=== PATIENT | male | born 1990 | race African-American/Black ===

== ENCOUNTER 2017-02-05 13:07 | Emergency (ER) | payer OTHER ==
[~2017-02-05] VITALS: Ht 180.3 cm; Wt 68.0 kg
--- NOTE | 2017-02-05 13:14 | ERA ---
ER Documentation Chief Complaint Date/Time DATE: 02/05/17 TIME: 13:14 Chief Complaint Suicidal ideation HPI The patient is a 27-year-old male, presenting to the ER because of acute suicidal ideation, acute auditory hallucination. He has not been taking his medication. He denies homicidal ideation, headache, neck pain, chest pain, abdominal pain, vomiting, dysuria, diarrhea. He has been using amphetamine. He does not smoke nor drink Past medical history: Schizoaffective disorder Past surgical history: None ROS All systems reviewed and are negative except as per history of present illness. Medications Home Meds Reported Medications Risperidone* (Risperdal*) 2 Mg Tablet, PO BID, TAB 02/05/17 Divalproex Sodium* (Depakote*) 500 Mg Tablet.dr, 500 MG PO BID, #120 TAB 02/05/17 Allergies Allergies: Coded Allergies: No Known Allergy (Unverified , 02/05/17) Physical Exam Vitals Vital Signs Date Time Temp Pulse Resp B/P Pulse Ox O2 Delivery O2 Flow Rate FiO2 02/05/17 19:11 98 20 169/113 98 Room Air 02/05/17 13:15 98.8 101 20 166/103 100 Physical Exam Const: No acute distress. Head: Atraumatic. Eyes: Normal Conjunctiva. ENT: Normal External Ears, Nose and Mouth. Neck: Full range of motion. No meningismus. Resp: Clear to auscultation bilaterally. Cardio: Regular rate and rhythm, no murmurs. Abd: Soft, non distended, normal bowel sounds, non tender. Skin: No petechiae or rashes. Back: No midline or flank tenderness. Ext: No cyanosis, or edema. Neur: Awake and alert. No focal deficit Psych: Psychotic and suicidal. Result Diagram: 02/05/17 1410 02/05/17 1410 Results 24 hrs Laboratory Tests Test 02/05/17 14:10 White Blood Count 6.810^3/ul Red Blood Count 4.8410^6/ul Hemoglobin 14.5g/dl Hematocrit 42.8% Mean Corpuscular Volume 88.4fl Mean Corpuscular Hemoglobin 30.0pg Mean Corpuscular Hemoglobin Concent 33.9g/dl Red Cell Distribution Width 12.4% Platelet Count 13187^3/UL Mean Platelet Volume 11.3fl Neutrophils % 70.5% Lymphocytes % 17.2% Monocytes % 11.0% Eosinophils % 0.4% Basophils % 0.6% Nucleated Red Blood Cells % 0.0/100WBC Neutrophils # 4.810^3/ul Lymphocytes # 1.210^3/ul Monocytes # 0.810^3/ul Eosinophils # 0.010^3/ul Basophils # 0.010^3/ul Nucleated Red Blood Cells # 0.010^3/ul Urine Color LT. YELLOW Urine Clarity CLEAR Urine pH 7.0 Urine Specific [place] 1.020 Urine Ketones TRACE Urine Nitrite NEGATIVE Urine Bilirubin NEGATIVE Urine Urobilinogen 1.0 E.U./dL Urine Leukocyte Esterase NEGATIVE Urine Microscopic RBC 0-2/HPF Urine Microscopic WBC 5-10/HPF Urine Squamous Epithelial Cells RARE Urine Hemoglobin NEGATIVE Urine Glucose NEGATIVE% Urine Total Protein 1+ Sodium Level 141mmol/L Potassium Level 4.0mmol/L Chloride Level 101mmol/L Carbon Dioxide Level 25mmol/L Anion Gap 19 Blood Urea Nitrogen 17mg/dl Creatinine 1.00mg/dl Glucose Level 97mg/dl Calcium Level 9.5mg/dl Total Bilirubin 0.5mg/dl Direct Bilirubin 0.00mg/dl Indirect Bilirubin 0.5mg/dl Aspartate Amino Transf (AST/SGOT) 28IU/L Alanine Aminotransferase (ALT/SGPT) 30IU/L Alkaline Phosphatase 74IU/L Total Protein 8.4g/dl Albumin 4.8g/dl Globulin 3.60g/dl Albumin/Globulin Ratio 1.33 Lipase 24U/L Salicylates Level < 1.0mg/dl Urine Opiates Screen NEGATIVE Acetaminophen Level < 10.0ug/ml Urine Barbiturates NEGATIVE Urine Amphetamines Screen POSITIVE Urine Benzodiazepines Screen NEGATIVE Urine Cocaine Screen NEGATIVE Urine Cannabinoids NEGATIVE Ethyl Alcohol Level < 10.0mg/dl Current Medications Medications (Trade) Dose Ordered Sig/Amy Route PRN Reason Start Time Stop Time Status Last Admin Dose Admin Divalproex Sodium (Depakote) 500 mg ONCE ONCE PO 02/05/17 20:00 02/05/17 20:01 DC 02/05/17 20:05 Risperidone (Risperdal) 2 mg ONCE ONCE PO 02/05/17 20:00 02/05/17 20:01 DC 02/05/17 20:05 Procedures/MDM MEDICAL MAKING DECISION: The patient is a 27-year-old male, presenting with acute suicidal ideation, acute substance abuse. The differential diagnoses considered include but are not limited to drug- induced psychosis, psychosis, substance abuse Departure Diagnosis: Primary Impression: Suicidal ideation Condition: Stable Comments Consultation: She was evaluated by telepsychiatrist who recommended voluntary admission SARAH GOLDSMITH MD February 05, 2017 13:14
[2017-02-05 13:15] VITALS: Ht 180.3 cm; Wt 68.0 kg
[2017-02-05] MEDS ORDERED: DIVA500T7 PO (13:43)
[2017-02-05] MEDS ORDERED: RISP2TAB93 PO (13:43)
[2017-02-05 14:26] LABS: ADD SCAN DIFF NO
[2017-02-05 14:27] LABS: BASOPHILS % 0.6 % (0.0-2.0); EOSINOPHILS % 0.4 % (0.0-7.0); HEMATOCRIT 42.8 % (42.0-52.0); HEMOGLOBIN 14.5 g/dl (14.0-18.0); LYMPHOCYTES # 1.2 10^3/ul (0.8-2.9); LYMPHOCYTES % 17.2 % (15.0-51.0); MEAN CORPUSCULAR HGB CONC 33.9 g/dl (32.0-37.0); MEAN CORPUSCULAR VOLUME 88.4 fl (82.0-101.0); MEAN PLATELET VOLUME 11.3 fl (7.4-10.4); MONOCYTE # 0.8 10^3/ul (0.3-0.9); NEUTROPHIL # 4.8 10^3/ul (1.6-7.5); NEUTROPHILS % 70.5 % (39.0-77.0); PLATELET COUNT 206 10^3/UL (140-415); RED BLOOD COUNT 4.84 10^6/ul (4.70-6.10); RED CELL DISTRIBUTION WIDTH 12.4 % (11.5-14.5); WHITE BLOOD COUNT 6.8 10^3/ul (4.8-10.8)
[2017-02-05 14:48] LABS: ALBUMIN 4.8 g/dl (3.3-4.9)
[2017-02-05 14:49] LABS: CHLORIDE 101 mmol/L (97-110); SODIUM 141 mmol/L (135-144)
[2017-02-05 14:51] LABS: ALBUMIN/GLOBULIN RATIO 1.33; ALKALINE PHOSPHATASE 74 IU/L (42-121); ANION GAP 19 (8-16); ASPARTATE AMINO TRANSFERASE 28 IU/L (15-46); BILIRUBIN,INDIRECT 0.5 mg/dl (0-1.1); BILIRUBIN,TOTAL 0.5 mg/dl (0.2-1.3); CARBON DIOXIDE 25 mmol/L (21-31); TOTAL PROTEIN 8.4 g/dl (6.1-8.1)
[2017-02-05 14:52] LABS: ALANINE AMINOTRANSFERASE 30 IU/L (13-69); BLOOD UREA NITROGEN 17 mg/dl (7-20); CALCIUM 9.5 mg/dl (8.4-10.2); GLUCOSE 97 mg/dl (70-220)
[2017-02-05 14:53] LABS: ACETAMINOPHEN < 10.0 ug/ml (10.0-30.0); ETHANOL < 10.0 mg/dl; SALICYLATE < 1.0 mg/dl (5.0-30.0)
[2017-02-05 15:36] LABS: ADD UMIC YES; URINE BILIRUBIN (Dip) NEGATIVE (NEGATIVE); URINE BLOOD (Dip) NEGATIVE (NEGATIVE); URINE COLOR LT. YELLOW (YELLOW); URINE GLUCOSE (Dip) NEGATIVE (NEGATIVE); URINE KETONES (Dip) TRACE (NEGATIVE); URINE LEUKOCYTE ESTERASE (Dip) NEGATIVE (NEGATIVE); URINE NITRITE (Dip) NEGATIVE (NEGATIVE); URINE TOTAL PROTEIN (Dip) 1+ (NEGATIVE); URINE UROBILINOGEN (Dip) 1.0 E.U./dL (0.1-1.0)
[2017-02-05 15:48] LABS: SQUAMOUS EPITHELIAL CELL,UR RARE; URINE RBCS 0-2 /HPF (0)
[2017-02-05 16:17] LABS: BARBITURATES NEGATIVE (NEGATIVE); BENZODIAZEPINES NEGATIVE (NEGATIVE); CANNABINOIDS NEGATIVE (NEGATIVE); COCAINE NEGATIVE (NEGATIVE); OPIATES NEGATIVE (NEGATIVE)
--- NOTE | 2017-02-05 17:14 | PSY ---
Date/Time of Note Date/Time of Note DATE: 02/05/17 TIME: 17:10 Psychiatric Subjective Eval Consent Pt consented to telemedicine: Yes Subjective Evaluation Patient location: emergency Chief Complaint: used meth c/o SI and abdominal pain History of present illness Pt is 27 yo homeless AAM presenting to ED c/o SI with a plan to cut his wrists. He ahs been off his meds for 2 months and admits to meth use. He says he hears vocies telling him to kil himself, he is paranoid, anxious, deprssed, hopeless, not able to sleep. He denies HI. He has been feeling that way for at least a week. Past psychiatric history pt was dx with schizophreina 7 years ago Hospitalization: Suicidal Attempt(s) Family History denies Medical history as per record Allergies: Coded Allergies: No Known Allergy (Unverified , 02/05/17) Substance Abuse Substance abuse history: Yes Prior substance abuse treatmen: No Social History Marital status: single Level of education: GED DPA/Conservatorship: No Occupation/Nursing Home: unemployed; homeless, worked as a [employer] until 2009 Psychiatric Objective Eval Physical Examination: Physical Examination: Not Applicable Sleep: Insomnia Appetite: Decreased Energy: Decreased Interest: Decreased Mental Status Examination: Appearance: Disheveled Eye Contact: Good Psychomotor Activity: Normal Behavior: Cooperative Speech: Soft AFFECT: Constricted Mood: Depressed Though Process: Linear Thought Content: Hallucinations Suicidal: Yes Homicidal: No On 72 hour hold: No Orientation: x3 Cognition: Alert Insight: Impared Judgement: Impared Laboratory Results Laboratory Tests Test 02/05/17 14:10 White Blood Count 6.810^3/ul Red Blood Count 4.8410^6/ul Hemoglobin 14.5g/dl Hematocrit 42.8% Mean Corpuscular Volume 88.4fl Mean Corpuscular Hemoglobin 30.0pg Mean Corpuscular Hemoglobin Concent 33.9g/dl Red Cell Distribution Width 12.4% Platelet Count 88644^3/UL Mean Platelet Volume 11.3fl Neutrophils % 70.5% Lymphocytes % 17.2% Monocytes % 11.0% Eosinophils % 0.4% Basophils % 0.6% Nucleated Red Blood Cells % 0.0/100WBC Neutrophils # 4.810^3/ul Lymphocytes # 1.210^3/ul Monocytes # 0.810^3/ul Eosinophils # 0.010^3/ul Basophils # 0.010^3/ul Nucleated Red Blood Cells # 0.010^3/ul Urine Color LT. YELLOW Urine Clarity CLEAR Urine pH 7.0 Urine Specific [place] 1.020 Urine Ketones TRACE Urine Nitrite NEGATIVE Urine Bilirubin NEGATIVE Urine Urobilinogen 1.0 E.U./dL Urine Leukocyte Esterase NEGATIVE Urine Microscopic RBC 0-2/HPF Urine Microscopic WBC 5-10/HPF Urine Squamous Epithelial Cells RARE Urine Hemoglobin NEGATIVE Urine Glucose NEGATIVE% Urine Total Protein 1+ Sodium Level 141mmol/L Potassium Level 4.0mmol/L Chloride Level 101mmol/L Carbon Dioxide Level 25mmol/L Anion Gap 19 Blood Urea Nitrogen 17mg/dl Creatinine 1.00mg/dl Glucose Level 97mg/dl Calcium Level 9.5mg/dl Total Bilirubin 0.5mg/dl Direct Bilirubin 0.00mg/dl Indirect Bilirubin 0.5mg/dl Aspartate Amino Transf (AST/SGOT) 28IU/L Alanine Aminotransferase (ALT/SGPT) 30IU/L Alkaline Phosphatase 74IU/L Total Protein 8.4g/dl Albumin 4.8g/dl Globulin 3.60g/dl Albumin/Globulin Ratio 1.33 Lipase 24U/L Salicylates Level < 1.0mg/dl Urine Opiates Screen NEGATIVE Acetaminophen Level < 10.0ug/ml Urine Barbiturates NEGATIVE Urine Amphetamines Screen POSITIVE Urine Benzodiazepines Screen NEGATIVE Urine Cocaine Screen NEGATIVE Urine Cannabinoids NEGATIVE Ethyl Alcohol Level < 10.0mg/dl Assessment and Plan Assessment/Diagnosis [place] I: SCHIZOAFFECTIVE DISORDER. AMPHETAMINE USE DISORDER [place] II: DEFERED [place] III: NAD [place] IV: SEVERE [place] V: GAF 25 Recommendation/Plan Medication Management PLEASE RESTART ON DEPAKOTE 500 MG PO BID AND RISPERDAL 2 MG PO BID Psychotherapy DEFER TO INPT Pt. Caregiver/Family Education N/A Follow-up/Disposition PLEASE TRANSFER TO INPT PSYCH FOR DTS; PT IS WILLING TO BE ADMITTED VOLUNTARY. D /W PETRA MANZANO MD February 05, 2017 17:14
[2017-02-05 19:11] VITALS: BP 169/113; PULSE 98; RESP 20
[2017-02-05] MEDS ORDERED: RISPERIDONE 2 MG TAB PO ONE (20:00)
[2017-02-05] MEDS ORDERED: DIVALPROEX (EC) 500 MG TAB PO ONE (20:00)
== END 2017-02-05 21:32 ==
LOC: E/R 13:07
DX: R45.851 Suicidal ideations (principal)
CPT/HCPCS: 80053; 80306; 80307; 81001; 83690; 85025; Z7502; Z7610; 81003; 99285

== ENCOUNTER 2017-02-05 22:07 | Emergency (ER) | payer OTHER ==
[~2017-02-05] VITALS: Ht 180.3 cm; Wt 68.0 kg
[~2017-02-05 22:07] MED LIST: DIVA500T7 PO; RISP2TAB93 PO
[2017-02-05 22:13] VITALS: Ht 180.3 cm; Wt 68.0 kg
[2017-02-05] MEDS ORDERED: SOD CHLORIDE 0.9% 1,000 ML IV STA (22:15)
[2017-02-06] MEDS ORDERED: SOD CHLORIDE 0.9% 1,000 ML IV ONE
--- NOTE | 2017-02-06 02:19 | ERA ---
ER Documentation Chief Complaint Date/Time DATE: 02/06/17 TIME: 02:18 Chief Complaint returned to ER after accepting facility refused psych admission r/t high HR HPI This is a 27-year-old gentleman who returned to ER after accepting facility refusing for psych admission secondary to elevated heart rate. Denies any new complaints. No other current issues. ROS All systems reviewed and are negative except as per history of present illness. Medications Home Meds Reported Medications Risperidone* (Risperdal*) 2 Mg Tablet, PO BID, TAB 02/05/17 Divalproex Sodium* (Depakote*) 500 Mg Tablet.dr, 500 MG PO BID, #120 TAB 02/05/17 Allergies Allergies: Coded Allergies: No Known Allergy (Unverified , 02/06/17) PMhx/Soc Medical and Surgical Hx: pt denies Medical Hx Hx Psychiatric Problems: Yes (schizophrenia, anxiety, depression) Hx Miscellaneous Medical Probl: Yes (GASTRITIS) Hx Alcohol Use: No Hx Substance Use: Yes (METH,MARIJUANA) Hx Tobacco Use: Yes Smoking Status: Current every day smoker Physical Exam Vitals Vital Signs Date Time Temp Pulse Resp B/P Pulse Ox O2 Delivery O2 Flow Rate FiO2 02/06/17 02:17 138 16 121/58 100 Room Air 02/06/17 00:35 87 16 166/96 100 Room Air 02/05/17 22:13 97.9 130 20 159/105 98 Physical Exam Const: [] Head: Atraumatic Eyes: Normal Conjunctiva ENT: Normal External Ears, Nose and Mouth. Neck: Full range of motion..~ No meningismus. Resp: Clear to auscultation bilaterally Cardio: Regular rate and rhythm, no murmurs Abd: Soft, non tender, non distended. Normal bowel sounds Skin: No petechiae or rashes Back: No midline or flank tenderness Ext: No cyanosis, or edema Neur: Awake and alert Psych: Normal Mood and Affect Results 24 hrs Current Medications Medications (Trade) Dose Ordered Sig/Amy Route PRN Reason Start Time Stop Time Status Last Admin Dose Admin Sodium Chloride 1,000 ml @ 1,000 mls/hr Q1H STAT IV 02/05/17 22:15 02/05/17 23:14 DC 02/05/17 22:27 Sodium Chloride (NS) 1,000 ml @ 1,000 mls/hr Q1H ONCE IV 02/06/17 00:00 02/06/17 00:59 DC 02/06/17 00:08 Hydralazine HCl (Apresoline) 100 mg ONCE ONCE PO 02/06/17 01:30 02/06/17 01:31 DC 02/06/17 01:28 Procedures/MDM Patient's behavioral symptoms have stabilized while in the department. Patient is medically cleared and appropriate for psychiatric evaluation and work up. No e/o neurologic, toxic, infectious, or metabolic cause. Patient's heart rate and blood pressure normalized. This is likely secondary to amphetamine abuse that he was seen for initially. Patient will be sent back to psychiatric facility Departure Diagnosis: Primary Impression: Suicidal ideation Condition: Stable CARIN NGUYEN February 06, 2017 02:19
[2017-02-06] MEDS ORDERED: LABETALOL 200 MG TAB PO ONE (02:30)
[2017-02-06 04:24] VITALS: BP 131/88; PULSE 90; RESP 18
== END 2017-02-06 06:05 ==
LOC: E/R 22:07
DX: R45.851 Suicidal ideations (principal); F17.210 Nicotine dependence, cigarettes, uncomplicated; R40.2142 Coma scale, eyes open, spontaneous, at arrival to emergency department; R40.2252 Coma scale, best verbal response, oriented, at arrival to emergency department; R40.2362 Coma scale, best motor response, obeys commands, at arrival to emergency department
CPT/HCPCS: J7030; Z7502; Z7610